=== PATIENT | female | born 1955 | race Caucasian/White ===

== ENCOUNTER → 2022-03-12 | Outpatient (REF) | payer OTHER | LOC: M SFHCDERM 13:06 | PROVIDERS: ATTEND Nurse Practitioner Family | DX: C44.519 Basal cell carcinoma of skin of other part of trunk (principal) ==

== ENCOUNTER → 2022-05-01 | Outpatient (CLI) | payer OTHER ==
[~2022-05-01] MED LIST: CETI10CA2 PO; GABA-1171 PO; LEXA1TAB2 PO; LOSA100T5 PO
== END ==
LOC: M LABSMTC 11:27
PROVIDERS: ATTEND Anesthesiology
DX: Z01.812 Encounter for preprocedural laboratory examination (principal); Z20.822 Contact with and (suspected) exposure to COVID-19

== ENCOUNTER 2022-05-06 06:45 | Day surgery (SDC) | payer OTHER ==
[~2022-05-06] VITALS: Ht 165.1 cm; Wt 91.4 kg
[2022-05-06] MEDS ORDERED: LIDOCAINE 2% 100MG/5ML SDV (FOR ANES.) As Ordered ONE (06:58)
[2022-05-06] MEDS ORDERED: LR 1,000 ML IV SCH (07:35)
[2022-05-06] MEDS ORDERED: propofoL 200 MG/20 ML VIAL As Ordered ONE ×2 (07:58→08:36)
[2022-05-06] MEDS ORDERED: KETOROLAC 60MG 2ML VIAL As Ordered ONE (07:58)
[2022-05-06] MEDS ORDERED: fentaNYL 100 MCG/2 ML INJECTION As Ordered ONE (07:59)
[2022-05-06] MEDS ORDERED: dexameTHASONE 4 MG/ML 1ML VIAL (J1100 PER 1MG) As Ordered ONE (07:59)
[2022-05-06] MEDS ORDERED: ONDANSETRON 4MG 2ML VIAL As Ordered ONE (07:59)
[2022-05-06] MEDS ORDERED: MIDAZOLAM INJ 2MG/2ML VIAL (J2250 PER 1MG) As Ordered ONE (07:59)
[2022-05-06] MEDS ORDERED: LIDOCAINE W/EPINEPHRINE 1% 20ML VIAL As Ordered ONE ×2 (08:01→08:32)
[2022-05-06 09:28] VITALS: BP 136/78
== END 2022-05-06 09:41 | disposition home or self-care (01) ==
LOC: M SDC 06:45
PROVIDERS: ATTEND Surgery
DX: C44.619 Basal cell carcinoma of skin of left upper limb, including shoulder (principal); D17.30 Benign lipomatous neoplasm of skin and subcutaneous tissue of unspecified sites; I10 Essential (primary) hypertension; M79.7 Fibromyalgia; G43.909 Migraine, unspecified, not intractable, without status migrainosus; F17.210 Nicotine dependence, cigarettes, uncomplicated; Z79.899 Other long term (current) drug therapy
CPT/HCPCS: 11403; 11606; 88305; J1100; J1885; J2250; J2405; J3010

== ENCOUNTER 2024-10-22 19:36 | Emergency (ER) | payer MEDICARE, OTHER ==
[~2024-10-22] VITALS: Ht 165.1 cm; Wt 94.3 kg
[2024-10-22 20:10] LABS: BASO # 0.1 10^3/uL (0.0-0.2); BASO % 0.7 % (0.0-1.0); EOS # 0.3 10^3/uL (0.0-0.5); EOS % 2.6 % (0.0-3.0); HEMATOCRIT 43.6 % (36.0-47.0); HEMOGLOBIN 15.1 g/dl (12.0-15.5); LYMPH # 1.3 10^3/uL (1.5-5.0); LYMPH % 12.4 % (24.0-44.0); MEAN CORPUSCULAR HEMOGLOBIN 32.8 pg (27.0-33.0); MEAN CORPUSCULAR HGB CONC 34.6 g/dl (32.0-36.5); MEAN CORPUSCULAR VOLUME 94.6 fl (80.0-96.0); MONO # 1.1 10^3/uL (0.0-0.8); MONO % 10.7 % (2.0-8.0); NEUTROPHILS # 7.7 10^3/uL (1.5-8.5); PLATELET COUNT, AUTOMATED 383 10^3/uL (150-450); RED BLOOD COUNT 4.61 10^6/uL (4.00-5.40); WHITE BLOOD COUNT 10.5 10^3/uL (4.0-10.0)
[2024-10-22 20:22] LABS: INR 0.88; PROTHROMBIN TIME 12.2 SECONDS (12.5-14.5)
[2024-10-22 20:44] LABS: LIPASE 25 U/L (12-53)
[2024-10-22 20:46] LABS: ALBUMIN 3.5 G/DL (3.2-5.2); ALKALINE PHOSPHATASE 598 U/L (35-104); ALT/SGPT 386 U/L (7.0-40); AST/SGOT 232 U/L (<34); BILIRUBIN,DIRECT 5.9 MG/DL (<0.4); BILIRUBIN,TOTAL 8.1 MG/DL (0.3-1.2); BLOOD UREA NITROGEN 16 MG/DL (9-23); CARBON DIOXIDE LEVEL 30 MMOL/L (20-31); CHLORIDE LEVEL 100 MMOL/L (98-107); CREATININE FOR GFR 0.57 MG/DL (0.55-1.30); GLOMERULAR FILTRATION RATE > 90.0 (>45); GLUCOSE, FASTING 108 MG/DL (74-106); SODIUM LEVEL 137 MMOL/L (136-145); TOTAL PROTEIN 7.4 G/DL (5.7-8.2)
[2024-10-22] MEDS ORDERED: ISOVUE-370 76% 100ML VIAL As Ordered ONE (22:06)
[2024-10-22] MEDS: ONDANSETRON 4MG 2ML VIAL IV ONE (22:29)
[2024-10-22] MEDS: MORPHINE 4 MG/ML 1ML VIAL IV ONE (22:30)
[2024-10-22] MEDS ORDERED: PROHANCE 279.3MG/ML 5ML VIAL As Ordered ONE (23:06)
[2024-10-22] MEDS ORDERED: PROHANCE 279.3MG/ML 15ML VIAL As Ordered ONE (23:07)
[2024-10-22] MEDS: NS (Normal Saline) 0.9% 1,000 ML IV ONE (23:47)
[2024-10-22] MEDS: ERTAPENEM SODIUM 1 GM in NS MINI-BAG PLUS 50 ML IV ONE (23:47)
[2024-10-23] MEDS: CYCLOBENZAPRINE 10MG TABLET PO ONE (01:21)
[2024-10-23] MEDS: GABAPENTIN 300 MG CAP PO ONE (01:21)
[2024-10-23] MEDS: traMADol 50 MG TAB PO ONE (02:39)
[2024-10-23 04:20] LABS: KETONE, URINE AUTO RFX NEGATIVE (NEGATIVE); MUCUS, URINE RFX SMALL (NEGATIVE); NITRITE, URINE AUTO RFX NEGATIVE (NEGATIVE); RBC, URINE AUTO RFX 1 /HPF (0-3); SQUAM EPITHELIAL CELL UR AURFX 1 /HPF (0-6)
[2024-10-23 04:32] LABS: LEUKOCYTE ESTERASE UR AUTO RFX 2+ (NEGATIVE)
[2024-10-23 04:33] LABS: WBC, URINE AUTO RFX 42 /HPF (0-3)
[2024-10-23 08:24] VITALS: BP 150/61
[2024-10-23 08:31] VITALS: TEMP 97.5; O2SAT 95
[2024-10-23] MEDS: MORPHINE 4 MG/ML 1ML VIAL IV ONE (08:34)
== END 2024-10-23 08:44 | disposition short-term general hospital (02) ==
LOC: M ED 19:36
DX: E80.7 Disorder of bilirubin metabolism, unspecified (principal); K83.09 Other cholangitis; R93.2 Abnormal findings on diagnostic imaging of liver and biliary tract; K86.89 Other specified diseases of pancreas; I10 Essential (primary) hypertension; F41.9 Anxiety disorder, unspecified; F32.A Depression, unspecified; F17.200 Nicotine dependence, unspecified, uncomplicated; Z79.899 Other long term (current) drug therapy
CPT/HCPCS: 74183; 80048; 80076; 81001; 83690; 85025; 85610; 87086; 93041; 96365; 96375; 96376; 99285; A9576; J1335; J2405; Q9967